=== PATIENT | male | born 2000 | race Hispanic/Latino ===

== ENCOUNTER 2021-11-06 13:53 | Emergency (ER) | payer MEDICAID, OTHER ==
[~2021-11-06] VITALS: Ht 180.3 cm; Wt 86.2 kg
[2021-11-06 15:45] VITALS: BP 165/90
[2021-11-06] MEDS ORDERED: IBUP-1552 PO (16:19)
[2021-11-06] MEDS ORDERED: KETOROLAC 60 MG VIAL (30MG/ML) IM SCH (16:30)
== END 2021-11-06 16:26 | disposition home or self-care (01) ==
LOC: EDH 13:53
DX: S93.491A Sprain of other ligament of right ankle, initial encounter (principal); S93.601A Unspecified sprain of right foot, initial encounter; I10 Essential (primary) hypertension; Z79.1 Long term (current) use of non-steroidal anti-inflammatories (NSAID); X50.1XXA Overexertion from prolonged static or awkward postures, initial encounter; Y93.89 Activity, other specified; Y92.89 Other specified places as the place of occurrence of the external cause; Y99.8 Other external cause status
CPT/HCPCS: 73610; 73630; 96372; 99284; J1885

== ENCOUNTER 2022-02-15 19:53 | Emergency (ER) | payer OTHER ==
[~2022-02-15] VITALS: Ht 180.3 cm; Wt 92.1 kg
[2022-02-15 21:12] LABS: BASOPHILS % (AUTO) 0.5 % (0.0-5.0); EOSINOPHILS % (AUTO) 0.9 % (0.0-8.0); HEMATOCRIT 48.8 % (42-54); LYMPHOCYTES % (AUTO) 22.5 % (21.0-51.0); MEAN CORPUSCULAR HEMOGLOBIN 30.1 pg (27.0-33.0); MEAN CORPUSCULAR HGB CONC 33.6 g/dL (32.0-36.0); MEAN CORPUSCULAR VOLUME 89.5 fL (80-100); MONOCYTES % (AUTO) 10.1 % (3.0-13.0); NEUTROPHILS % (AUTO) 65.7 % (40.0-77.0); PLATELET COUNT (AUTO) 343 K/uL (130-400); RED BLOOD CELL COUNT(AUTO) 5.45 MIL/uL (4.50-6.20); RED CELL DISTRIBUTION WIDTH 12.2 % (11.0-15.5); WHITE BLOOD COUNT (AUTO) 11.1 K/uL (4.8-10.8)
[2022-02-15 21:17] VITALS: BP 153/87
[2022-02-15 21:26] LABS: ALBUMIN 4.6 g/dL (3.5-5.0); BILIRUBIN,TOTAL 1.1 mg/dL (0.2-1.0); TOTAL PROTEIN, SERUM 8.9 g/dL (6.0-8.3)
[2022-02-15] MEDS ORDERED: 0.9%NACL 1000ML 1,000 ML IV ONE (21:30)
== END 2022-02-15 23:12 | disposition home or self-care (01) ==
LOC: EDH 19:53
DX: I95.1 Orthostatic hypotension (principal); K62.5 Hemorrhage of anus and rectum; Z90.49 Acquired absence of other specified parts of digestive tract
CPT/HCPCS: 36415; 80053; 82270; 85025; 96360; 96361; 99283; J7030